=== PATIENT | female | born 1975 | race Caucasian/White ===

== ENCOUNTER 2017-10-28 12:35 | Emergency (ER) | payer OTHER ==
[~2017-10-28] VITALS: Ht 154.9 cm; Wt 69.4 kg
[2017-10-28 12:53] VITALS: Ht 154.9 cm; Wt 69.4 kg
[2017-10-28 15:16] VITALS: BP 149/102
== END 2017-10-28 15:16 | disposition home or self-care (01) ==
LOC: ED 12:35
DX: H66.91 Otitis media, unspecified, right ear (principal); J40 Bronchitis, not specified as acute or chronic; I10 Essential (primary) hypertension

== ENCOUNTER 2018-07-27 02:56 | Emergency (ER) | payer SELFPAY ==
[2018-07-27 04:57] LABS: AMPHETAMINE QUAL UR POSITIVE (See below)
[2018-07-27 06:30] VITALS: BP 117/77
== END 2018-07-27 06:31 | disposition home or self-care (01) ==
LOC: ED 02:56
PROVIDERS: Emergency Medicine
DX: F41.9 Anxiety disorder, unspecified (principal); F19.10 Other psychoactive substance abuse, uncomplicated; M79.641 Pain in right hand; Z90.89 Acquired absence of other organs

== ENCOUNTER 2019-09-20 09:00 | Emergency (ER) | payer MEDICAID ==
[~2019-09-20] VITALS: Ht 154.9 cm; Wt 73.9 kg
[2019-09-20 09:06] VITALS: Ht 154.9 cm; Wt 73.9 kg
[2019-09-20 11:34] VITALS: BP 161/88
== END 2019-09-20 11:34 | disposition home or self-care (01) ==
LOC: ED 09:00
DX: N39.0 Urinary tract infection, site not specified (principal); J06.9 Acute upper respiratory infection, unspecified; Z90.89 Acquired absence of other organs
CPT/HCPCS: 87804